=== PATIENT | female | born 1995 ===

== ENCOUNTER → 2017-11-14 | Outpatient (CLI) | payer OTHER ==
[2017-11-14 11:39] LABS: PLATELET COUNT, AUTOMATED 260 K/uL (150-450)
== END ==
LOC: LAB 10:39
PROVIDERS: ATTEND Student in an Organized Health Care Education/Training Program
DX: Z34.91 Encounter for supervision of normal pregnancy, unspecified, first trimester (principal)
CPT/HCPCS: 36415; 81001; 85025; 86592; 86703; 86762; 86850; 86900; 86901; 87088; 87340

== ENCOUNTER → 2017-11-26 | Outpatient (CLI) | payer OTHER | LOC: LAB 16:32 | PROVIDERS: ATTEND Student in an Organized Health Care Education/Training Program | DX: O03.9 Complete or unspecified spontaneous abortion without complication (principal) | CPT/HCPCS: 36415; 84702 ==

== ENCOUNTER → 2017-12-18 | Outpatient (CLI) | payer OTHER | LOC: LAB 16:01 | PROVIDERS: ATTEND Student in an Organized Health Care Education/Training Program | DX: O03.9 Complete or unspecified spontaneous abortion without complication (principal) | CPT/HCPCS: 36415; 84702 ==